=== PATIENT | female | born 1945 | race American Indian/Alaskan Native ===

== ENCOUNTER 2019-06-26 19:26 | Inpatient (IN) | payer MEDICARE ==
[2019-07-04 09:13] VITALS: BP 132/82
== END 2019-07-04 12:25 | DRG 281 ==
LOC: ED 19:26 → 4A 06-27 02:10 → 2B-ACE 07-03 17:45
PROVIDERS: ADMIT Internal Medicine; ATTEND Internal Medicine
PROC: 0W993ZZ Drainage of Right Pleural Cavity, Percutaneous Approach (ICD-10-PCS; principal; 2019-06-27)
PROC: BB4BZZZ Ultrasonography of Pleura (ICD-10-PCS; 2019-06-27)
PROC: 4A033R1 Measurement of Arterial Saturation, Peripheral, Percutaneous Approach (ICD-10-PCS; 2019-06-29)
DX: I11.0 Hypertensive heart disease with heart failure (principal); I21.A1 Myocardial infarction type 2; J96.10 Chronic respiratory failure, unspecified whether with hypoxia or hypercapnia; J90 Pleural effusion, not elsewhere classified; I47.2 Ventricular tachycardia; I50.23 Acute on chronic systolic (congestive) heart failure; I42.8 Other cardiomyopathies; E16.2 Hypoglycemia, unspecified; E87.5 Hyperkalemia; R53.81 Other malaise; I25.10 Atherosclerotic heart disease of native coronary artery without angina pectoris; E78.5 Hyperlipidemia, unspecified; Z99.81 Dependence on supplemental oxygen; Z87.891 Personal history of nicotine dependence; Z79.899 Other long term (current) drug therapy
CPT/HCPCS: 32555; 36415; 36600; 71045; 80048; 80061; 81001; 82533; 82550; 82553; 82803; 82947; 82962; 83880; 84484; 85025; 85610; 85730; 87116; 93005; 93010; G0378; A9270-GY; J1100; J1644; J1650; J1940; J2270; J2405; J8540